=== PATIENT | male | born 1960 | race African-American/Black ===

== ENCOUNTER 2016-11-17 03:28 | Emergency (ER) | payer OTHER ==
[~2016-11-17] VITALS: Ht 182.9 cm; Wt 85.7 kg
[~2016-11-17 03:28] MED LIST: ASPIR 8181 MG ORAL; BENADRYL CRE1 APPLIC TOPIC; BENADRYL25 MG ORAL; CLINDAMYCIN HC150 MG ORAL; GLIPIZIDE5 MG ORAL; IBUPROFEN600 MG ORAL; KENALOG 0.1% CR15 GM APPLIC; LOSARTAN POTASS25 MG ORAL; METFORMIN HCL1000 M1 ORAL; NORCO 5-325 TA1 EACH ORAL; PROMETH-CODEIN 65 ML PO; PROMETHAZINE-C118 M1 ORAL; RHINOCORT AQUA8.6 GM NS; ZOCOR20 MG ORAL
[2016-11-17 03:37] VITALS: BP 127/87
[2016-11-17] MEDS ORDERED: BACTRIM DS TAB1 EAC1 ORAL (04:08)
--- NOTE | 2016-11-17 04:08 | Emergency Room Report ---
History of Present Illness General Chief Complaint: General Complaint Source: Patient, Medical Record Present Illness HPI Is a 55-year-old male with history diabetes. He presents with lesion to the groin area. His ongoing for last 2 days. It drained already. He was concerned because his girlfriend has a large cyst/abscess on abdominal wall. She had to go to the doctor had it drained and placed on antibiotics. He has no pain Allergies: Coded Allergies: No Known Allergies (Unverified , 08/26/13) Patient History Past Medical History: see triage record, old chart reviewed, DM Past Surgical History: other Pertinent Family History: none Social History: Denies: smoking Immunizations: other Reviewed Nursing Documentation: PMH: Agreed, PSxH: Agreed Nursing Documentation-PMH Past Medical History: No History, Except For Hx Hypertension: Yes Hx Diabetes: Yes Review of Systems Eye: Denies: blurred vision, eye pain ENT: Denies: ear pain, nose congestion, throat swelling Respiratory: Denies: cough, shortness of breath Cardiovascular: Denies: chest pain, palpitations Gastrointestinal: Denies: abdominal pain, diarrhea, nausea, vomiting Musculoskeletal: Denies: back pain, joint pain Skin: Denies: rash Neurological: Denies: headache, numbness Endocrine: Denies: increased thirst, increased urine Hematologic/Lymphatic: Denies: easy bruising All Other Systems: negative except mentioned in HPI Physical Exam Vital Signs Date Time Temp Pulse Resp B/P Pulse Ox O2 Delivery O2 Flow Rate FiO2 11/17/16 03:33 98.1 97 14 127/87 100 Room Air vitals normal Sp02 EP Interpretation: reviewed, normal General Appearance: well appearing, no apparent distress, alert Head: normocephalic, atraumatic Eyes: bilateral eye EOMI, bilateral eye PERRL ENT: hearing grossly normal, normal pharynx Neck: full range of motion, supple, no meningismus Respiratory: chest non-tender, lungs clear, normal breath sounds Cardiovascular #1: regular rate, rhythm, no murmur Gastrointestinal: normal bowel sounds, non tender, no mass, no organomegaly, no bruit, non-distended Genitourinary: other - Beers for scabs from previous abscess. Each measure about 1 cm. This one of the dorsum/base of the penis. There is one on the suprapubic area and is to on the right inguinal area. No testicular tenderness or penile discharge. Musculoskeletal: back normal, gait/station normal, normal range of motion Neurologic: alert, oriented x3 Psychiatric: mood/affect normal Skin: warm/dry Medical Decision Making Diagnostic Impression: Primary Impression: Abscess of suprapubic region ER Course Patient with abscess to the suprapubic area. Most likely MRSA. We'll discharge home. Nothing to be I&D. Last Vital Signs Date Time Temp Pulse Resp B/P Pulse Ox O2 Delivery O2 Flow Rate FiO2 11/17/16 03:37 98.1 97 14 127/87 100 Room Air Status: improved Disposition: HOME, SELF-CARE Condition: Stable Scripts Trimethoprim/Sulfamethoxazole 160/800* (BACTRIM DS TABLET*) 1 Each Tablet 1 TAB ORAL Q12H, #14 TAB 0 Refills Prov: LIBERTY SALDANA M.D. 11/17/16 Additional Instructions: Followup with your Dr. in 7 days. Return if worse. Clean area with hydrogen peroxide. LIBERTY SALDANA M.D. November 17, 2016 04:08
[2016-11-17 04:18] VITALS: BP 127/87
== END 2016-11-17 04:20 | disposition home or self-care (01) ==
LOC: EMR 04:05
DX: L02.214 Cutaneous abscess of groin (principal); I10 Essential (primary) hypertension; E11.9 Type 2 diabetes mellitus without complications
CPT/HCPCS: 99283

== ENCOUNTER 2016-12-29 04:07 | Emergency (ER) | payer OTHER ==
[~2016-12-29] VITALS: Ht 182.9 cm; Wt 85.7 kg
[~2016-12-29 04:07] MED LIST changes: +BACTRIM DS TAB1 EAC1 ORAL
[2016-12-29] MEDS ORDERED: OCUFLOX5 ML BOTH EYES (04:55)
[2016-12-29] MEDS ORDERED: PROMETHAZI6.25 MG/1 ORAL (04:55)
[2016-12-29 05:17] VITALS: BP 138/76
--- NOTE | 2016-12-31 14:36 | Emergency Room Report ---
History of Present Illness General Chief Complaint: Sore Throat Source: Patient Present Illness HPI 56-year-old male presents ED for evaluation. States the last 4 days he's had a runny nose, congestion, cough and bilateral eye discharge. States cough is dry. Denies fevers or chills. Denies earache. States he has a sore throat, 5/ 10, dull, nonradiating. Also notes crusting over his eyes. Denies photophobia , blurry vision, nausea or vomiting. Denies neck stiffness. Denies sick contacts or recent travel. No other aggravating or relieving factors. Denies any other associated symptoms Allergies: Coded Allergies: No Known Allergies (Unverified , 08/26/13) Patient History Past Medical History: DM, HTN Past Surgical History: none Pertinent Family History: none Social History: Denies: alcohol use, drug use, smoking Immunizations: UTD Reviewed Nursing Documentation: PMH: Agreed, PSxH: Agreed Nursing Documentation-PMH Hx Hypertension: Yes Hx Diabetes: Yes Review of Systems All Other Systems: negative except mentioned in HPI Physical Exam Vital Signs Date Time Temp Pulse Resp B/P Pulse Ox O2 Delivery O2 Flow Rate FiO2 12/29/16 04:25 98.1 102 16 131/94 98 Room Air Sp02 EP Interpretation: reviewed, normal General Appearance: no apparent distress, alert, GCS 15, non-toxic Head: normocephalic, atraumatic Eyes: bilateral eye EOMI, bilateral eye PERRL, bilateral eye other - discharge from both eyes ENT: hearing grossly normal, normal pharynx, no angioedema, normal voice, TMs + canals normal Neck: full range of motion, supple/symm/no masses Respiratory: chest non-tender, lungs clear, normal breath sounds, speaking full sentences Cardiovascular #1: regular rate, rhythm, no edema Cardiovascular #2: 2+ carotid (R), 2+ carotid (L), 2+ radial (R), 2+ radial (L) , 2+ dorsalis pedis (R), 2+ dorsalis pedis (L) Gastrointestinal: normal bowel sounds, non tender, soft, non-distended, no guarding, no rebound Rectal: deferred Genitourinary: normal inspection, no CVA tenderness Musculoskeletal: back normal, gait/station normal, normal range of motion, non- tender Neurologic: alert, oriented x3, responsive, motor strength/tone normal, sensory intact, speech normal Psychiatric: judgement/insight normal, memory normal, mood/affect normal, no suicidal/homicidal ideation Reflexes: 3+ bicep (R), 3+ bicep (L), 3+ tricep (R), 3+ tricep (L), 3+ knee (R) , 3+ knee (L) Skin: normal color, no rash, warm/dry, well hydrated Lymphatic: no adenopathy Medical Decision Making Diagnostic Impression: Primary Impression: Upper respiratory infection Qualified Codes: J06.9 - Acute upper respiratory infection, unspecified Additional Impression: Conjunctivitis Qualified Codes: H10.9 - Unspecified conjunctivitis ER Course Hospital Course 56-year-old M presents to ED with bilateral eye redness and discharge. with runny nose, cough and congestion Differential diagnoses include: conjunctivitis, traumatic iritis, foreign body, corneal abrasion Clinical course Patient placed on stretcher. After initial history, physical exam revealed a middle-aged male no acute distress. There is injected conjunctiva and both eyes. crusting around eyes noted. Pupils equally reactive to light bilaterally. No evidence of foreign body. Clinical findings consistent with conjunctivitis. remainder of physical exam unremarkable Diagnosis - conjunctivitis, URI Stable and discharged to home with prescription for Ocuflox, cough syrup. Followup with PMD/Optho. Return to ED if symptoms recur or worsen Last Vital Signs Date Time Temp Pulse Resp B/P Pulse Ox O2 Delivery O2 Flow Rate FiO2 12/29/16 05:17 97.0 76 18 138/76 99 Room Air Status: improved Disposition: HOME, SELF-CARE Condition: Stable Scripts Ofloxacin (OCUFLOX) 5 Ml Drops 1 DROP BOTH EYES QID for 7 Days, ML Prov: REBECCA ROJAS M.D. 12/29/16 Promethazine Hcl (PROMETHAZINE HCL*) 6.25 Mg/5 Ml Syrup 5 ML ORAL Q6H, #120 ML 0 Refills Prov: REBECCA ROJAS M.D. 12/29/16 Patient Instructions: Bacterial Conjunctivitis, [id number] REBECCA ROJAS M.D. Dec 31, 2016 14:36
== END 2016-12-29 05:05 | disposition home or self-care (01) ==
LOC: EMR 04:39
DX: J06.9 Acute upper respiratory infection, unspecified (principal); H10.9 Unspecified conjunctivitis; I10 Essential (primary) hypertension; E11.9 Type 2 diabetes mellitus without complications
CPT/HCPCS: 99283

== ENCOUNTER 2018-04-18 01:49 | Emergency (ER) | payer OTHER ==
[~2018-04-18] VITALS: Ht 182.9 cm; Wt 88.5 kg
[~2018-04-18 01:49] MED LIST changes: +OCUFLOX5 ML BOTH EYES; +PROMETHAZI6.25 MG/1 ORAL
[2018-04-18] MEDS ORDERED: Bacitracin Oint UD TOPIC ONE (02:45)
[2018-04-18 03:09] LABS: APPEARANCE,URINE CLEAR; BASOPHILS % (AUTO) 0.6 % (0.0-2.0); BILIRUBIN, URINE NEGATIVE (NEGATIVE); COLOR,URINE PALE YELLOW; EOSINOPHILS % (AUTO) 2.8 % (0.0-3.0); GLUCOSE, URINE (UA) 4+ (NEGATIVE); HEMATOCRIT 42.4 % (42.0-52.0); HEMOGLOBIN 14.6 G/DL (14.2-18.0); KETONES,URINE NEGATIVE (NEGATIVE); LEUKOCYTE ESTERASE ,URINE NEGATIVE (NEGATIVE); LYMPHOCYTES % (AUTO) 25.3 % (20.0-45.0); MEAN CORPUSCULAR VOLUME 89 FL (80-99); MONOCYTES % (AUTO) 7.2 % (1.0-10.0); NEUTROPHILS % (AUTO) 64.2 % (45.0-75.0); NITRITE,URINE NEGATIVE (NEGATIVE); PH,URINE 5 (4.5-8.0); PLATELET COUNT 291 K/UL (150-450); PROTEIN,URINE 2+ (NEGATIVE); RED BLOOD COUNT 4.75 M/UL (4.70-6.10); UROBILINOGEN,URINE NORMAL MG/DL (0.0-1.0); WHITE BLOOD COUNT 7.7 K/UL (4.8-10.8)
[2018-04-18 03:31] LABS: ANION GAP 8 mmol/L (5-15); BLOOD UREA NITROGEN 15 mg/dL (7-18); CARBON DIOXIDE 26 MMOL/L (21-32); CHLORIDE 102 MMOL/L (98-107); CREATININE 1.3 MG/DL (0.55-1.30); POTASSIUM 4.4 MMOL/L (3.5-5.1); SODIUM 136 MMOL/L (136-145)
[2018-04-18 03:44] LABS: ALANINE AMINOTRANSFERASE 30 U/L (12-78); ALBUMIN 3.9 G/DL (3.4-5.0); ALKALINE PHOSPHATASE 75 U/L (46-116); ASPARTATE AMINO TRANSFERASE 19 U/L (15-37); BILIRUBIN,TOTAL 1.1 MG/DL (0.2-1.0); CREATINE KINASE 458 U/L (26-308)
[2018-04-18 03:45] LABS: BILIRUBIN,DIRECT 0.2 MG/DL (0.0-0.3)
--- NOTE | 2018-04-18 04:32 | Emergency Room Report ---
History of Present Illness General Chief Complaint: Lower Extremity Injury Source: Patient Present Illness HPI Patient presents with a wound on his right big toe. He just noticed it getting out of the shower today. He states that he went off his diabetic diet and ate whole bag of mints recently. Also hasn't taken his medication tonight. His blood sugars been elevated according to him. He denies any fevers or chills. He has peripheral neuropathy. He denies chest pain, shortness of breath, edema, calf pain, dysuria, change in bowels. He does have chronic congestion. Allergies: Coded Allergies: No Known Allergies (Unverified , 08/26/13) Patient History Past Medical History: see triage record Social History: Denies: smoking Social History Narrative from home Reviewed Nursing Documentation: PMH: Agreed; PSxH: Agreed Nursing Documentation-PMH Hx Hypertension: Yes Hx Diabetes: Yes Hx Neurological Problems: Yes - neuropathy r/t diabetes Review of Systems All Other Systems: negative except mentioned in HPI Physical Exam Vital Signs Date Time Temp Pulse Resp B/P (MAP) Pulse Ox O2 Delivery O2 Flow Rate FiO2 04/18/18 01:55 98.6 99 16 146/94 97 Room Air 98.6 Sp02 EP Interpretation: reviewed, normal General Appearance: well appearing, no apparent distress, GCS 15 Head: normocephalic Eyes: bilateral eye normal inspection, bilateral eye PERRL ENT: moist mucus membranes Neck: supple Respiratory: lungs clear, normal breath sounds Cardiovascular #1: regular rate, rhythm Cardiovascular #2: 2+ radial (R), 2+ dorsalis pedis (R) Gastrointestinal: normal inspection, normal bowel sounds, non tender, no mass, non-distended Musculoskeletal: back normal, gait/station normal, normal range of motion Neurologic: alert, oriented x3, sensory deficit Skin: warm/dry, other - stage 2 ulcer Medical Decision Making Diagnostic Impression: Primary Impression: Hyperglycemia Additional Impression: Pressure ulcer Qualified Codes: L89.892 - Pressure ulcer of other site, stage 2 ER Course Patient presents with a lesion on his right great toe with history of diabetes. Differential includes diabetic ulcer, pressure ulcer, colitis, osteomyelitis amongst others. Also his blood sugars out of control. We need to exclude cardiac cause of this. Patient will be evaluated with EKG. No imaging is an necessary unless labs are abnormal specifically sedimentation rate. In addition we need to check renal function. Patient is not complaining about pain. His tetanus is up-to-date. Anabolic ointment is ordered. Labs significant for normal white count and normal sedimentation rate. Blood sugars slightly elevated. The patient was given a dose of his medication here. Discussion centered around patient needs to follow-up with his pharmaceutical assistant in his own private doctor. At this point only local [employer] operations intelligence officer as needed with topical antibiotics. Also patient was advised to be compliant with his antihyperglycemic medication. Patient is stable for outpatient observation and treatment Laboratory Tests Test 04/18/18 03:00 White Blood Count 7.7 K/UL (4.8-10.8) Red Blood Count 4.75 M/UL (4.70-6.10) Hemoglobin 14.6 G/DL (14.2-18.0) Hematocrit 42.4 % (42.0-52.0) Mean Corpuscular Volume 89 FL (80-99) Mean Corpuscular Hemoglobin 30.8 PG (27.0-31.0) Mean Corpuscular Hemoglobin Concent 34.4 G/DL (32.0-36.0) Red Cell Distribution Width 11.0 % (11.6-14.8) L Platelet Count 291 K/UL (150-450) Mean Platelet Volume 6.7 FL (6.5-10.1) Neutrophils (%) (Auto) 64.2 % (45.0-75.0) Lymphocytes (%) (Auto) 25.3 % (20.0-45.0) Monocytes (%) (Auto) 7.2 % (1.0-10.0) Eosinophils (%) (Auto) 2.8 % (0.0-3.0) Basophils (%) (Auto) 0.6 % (0.0-2.0) Erythrocyte Sedimentation Rate 6 MM/HR (0-20) Urine Color Pale yellow Urine Appearance Clear Urine pH 5 (4.5-8.0) Urine Specific [place] 1.020 (1.005-1.035) Urine Protein 2+ (NEGATIVE) H Urine Glucose (UA) 4+ (NEGATIVE) H Urine Ketones Negative (NEGATIVE) Urine Blood Negative (NEGATIVE) Urine Nitrite Negative (NEGATIVE) Urine Bilirubin Negative (NEGATIVE) Urine Urobilinogen Normal MG/DL (0.0-1.0) Urine Leukocyte Esterase Negative (NEGATIVE) Urine RBC 0-2 /HPF (0 - 0) H Urine WBC 0-2 /HPF (0 - 0) Urine Squamous Epithelial Cells Occasional /LPF Urine Bacteria Occasional /HPF (NONE) Sodium Level 136 MMOL/L (136-145) Potassium Level 4.4 MMOL/L (3.5-5.1) Chloride Level 102 MMOL/L (98-107) Carbon Dioxide Level 26 MMOL/L (21-32) Anion Gap 8 mmol/L (5-15) Blood Urea Nitrogen 15 mg/dL (7-18) Creatinine 1.3 MG/DL (0.55-1.30) Estimate Glomerular Filtration Rate > 60 mL/min (>60) Glucose Level 306 MG/DL (74-106) H Calcium Level 9.0 MG/DL (8.5-10.1) Total Bilirubin 1.1 MG/DL (0.2-1.0) H Direct Bilirubin 0.2 MG/DL (0.0-0.3) Aspartate Amino Transferase (AST) 19 U/L (15-37) Alanine Aminotransferase (ALT) 30 U/L (12-78) Alkaline Phosphatase 75 U/L (46-116) Total Creatine Kinase 458 U/L (26-308) H Total Protein 7.7 G/DL (6.4-8.2) Albumin 3.9 G/DL (3.4-5.0) Globulin 3.8 g/dL Albumin/Globulin Ratio 1.0 (1.0-2.7) Rhythm Strip Diag. Results EP Interpretation: yes Rhythm: NSR, no PVC's, no ectopy Last Vital Signs Date Time Temp Pulse Resp B/P (MAP) Pulse Ox O2 Delivery O2 Flow Rate FiO2 04/18/18 05:04 98.6 16 132/88 97 Room Air 98.6 04/18/18 01:55 99 Status: improved Disposition: HOME, SELF-CARE Condition: Improved Scripts Chlorpheniramine Maleate (CHLOR-TRIMETON) 4 Mg Tablet 4 MG PO Q6HR PRN for congestion, #14 TAB Prov: Braydon Hernandez M.D. 04/18/18 Bacitracin (Bacitracin) 28.4 Gm Oint...g. 1 APPLIC TOPIC BID, #20 GM Prov: Braydon Hernandez M.D. 04/18/18 Referrals: [facility],REFERRING (PCP) Braydon Hernandez M.D. Apr 18, 2018 04:32
[2018-04-18] MEDS ORDERED: CHLOR-TRIMETON4 MG PO (04:34)
[2018-04-18] MEDS ORDERED: BACITRACIN15 GM TOPIC (04:34)
[2018-04-18] MEDS ORDERED: GlipiZIDE 5mg tab ORAL STA (04:41)
[2018-04-18 05:04] VITALS: BP 132/88
[2018-04-18] MEDS ORDERED: metFORMIN 500mg tab ORAL SCH (06:30)
--- NOTE | 2018-04-20 12:07 | Cardiology Report ---
APPROVED REPORT EKG Measurement Heart [id number] Normal sinus rhythm Moderate voltage criteria for LVH, may be normal variant Borderline ECG
== END 2018-04-18 05:06 | disposition home or self-care (01) ==
LOC: EMR 02:20
DX: E11.65 Type 2 diabetes mellitus with hyperglycemia (principal); L89.892 Pressure ulcer of other site, stage 2; E11.40 Type 2 diabetes mellitus with diabetic neuropathy, unspecified; I10 Essential (primary) hypertension
CPT/HCPCS: 36415; 80053; 81003; 82248; 82550; 85025; 85651; 93005; 99283

== ENCOUNTER → 2018-12-29 | Emergency (ER) | payer OTHER ==
[~2018-12-29] VITALS: Ht 182.9 cm; Wt 86.2 kg
[~2018-12-29] MED LIST changes: +BACITRACIN15 GM TOPIC; +CHLOR-TRIMETON4 MG PO; +HYDROCODON-ACE1 EA15 ORAL
--- NOTE | 2018-12-29 04:04 | NUR ---
pt was called to be triaged and was not present at the waiting room
--- NOTE | 2018-12-29 04:19 | NUR ---
ED Nurse Note: Pt ambulated to ED from home c/o 04/16 pain on R side of body and blood in stool. Pt is A&Ox4 Addendum: 12/29/18 at 0424 by KDEARING ED Nurse Note: Correction: Sergo walker
[2018-12-29 04:20] VITALS: BP 139/101
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
[2018-12-29 05:16] VITALS: BP 139/101
--- NOTE | 2018-12-29 05:16 | NUR ---
ER DISCHARGE NOTE: Patient is cleared to be discharged per ERMD, pt is aox4, on room air, with stable vital signs. pt was given dc and prescription instructions, pt was able to verbalize understanding, pt id band removed. pt is able to ambulate with steady gait. pt took all belongings.
--- NOTE | 2018-12-29 12:21 | Diagnostic Imaging Report ---
Indication: Neck Pain Findings: 3 views of the cervical spine were obtained. Moderate degenerative changes of the cervical spine are demonstrated. This is characterized by vertebral endplate osteophyte formation and narrowing of intervertebral discs. There is no acute fracture identified. Alignment is normal. The open-mouth odontoid view shows an intact dens and good alignment of the lateral masses with respect to the body of C2. There is no soft tissue swelling. Impression: Moderate degenerative spondylosis.
== END | disposition home or self-care (01) ==
LOC: EMR 04:35
DX: S16.1XXA Strain of muscle, fascia and tendon at neck level, initial encounter (principal); V43.52XA Car driver injured in collision with other type car in traffic accident, initial encounter; Y92.410 Unspecified street and highway as the place of occurrence of the external cause; E11.9 Type 2 diabetes mellitus without complications; I10 Essential (primary) hypertension
CPT/HCPCS: 72040; 99283